=== PATIENT | male | born 1965 | race African-American/Black ===

== ENCOUNTER 2018-10-23 09:36 | Emergency (ER) | payer MEDICAID ==
[~2018-10-23] VITALS: Ht 182.9 cm; Wt 82.9 kg
--- NOTE | 2018-10-23 09:42 | NUR ---
NA X 1 PT IN BATHROOM
--- NOTE | 2018-10-23 10:02 | NUR ---
PT REFUSED WHEELCHAIR
--- NOTE | 2018-10-23 10:15 | NUR ---
Pt to room from lobby.
--- NOTE | 2018-10-23 10:39 | NUR ---
patient arrives with nausea/vomiting/diarrea/stomach pain in rlq and llq/ and dizzness. roomed, gowned, on monitor. collected urine and stool. isolation for diarrea
[2018-10-23] MEDS ORDERED: ONDANSETRON 2MG/ML, 2ML ONE (11:07)
[2018-10-23] MEDS ORDERED: FAMOTIDINE 20 MG/2 ML ONE (11:08)
[2018-10-23 11:15] LABS: BASOPHILS # (AUTO) 0.03 x10^3/uL (0-0.1); BASOPHILS % (AUTO) 0 % (0-1); EOSINOPHILS # (AUTO) 0.17 x10^3/uL (0-0.4); EOSINOPHILS % (AUTO) 2 % (1-7); LYMPHOCYTES # (AUTO) 0.84 x10^3/uL (1-3.4); LYMPHOCYTES % (AUTO) 8 % (22-44); MD NO; MEAN CORPUSCULAR HEMOGLOBIN 29.1 pg (27.5-34.5); MEAN CORPUSCULAR HGB CONC 33.5 g/dL (33.2-36.2); MEAN PLATELET VOLUME 7.6 fL (7.4-10.4); MONOCYTES # (AUTO) 1.33 x10^3/uL (0.2-0.8); MONOCYTES % (AUTO) 12 % (2-9); NEUTROPHILS # (AUTO) 8.39 x10^3/uL (1.8-6.8); NEUTROPHILS % (AUTO) 78 % (42-75); PLATELET COUNT 291 x10^3/uL (130-400); RED BLOOD COUNT 5.07 x10^6/uL (4.38-5.82); RED CELL DISTRIBUTION WIDTH 12.7 % (9.4-14.8)
--- NOTE | 2018-10-23 11:15 | NUR ---
patient medicated, and getting fluid.
[2018-10-23 11:25] LABS: ALBUMIN 3.8 g/dL (3.4-5.0); ANION GAP 4 mmol/L (5-15); CALCIUM 8.6 mg/dL (8.5-10.1); CHLORIDE 109 mmol/L (98-107); CREATININE 1.08 mg/dL (0.7-1.3)
[2018-10-23] MEDS ORDERED: MAALOX/HYOSCYAMINE/LIDOCAINE 45 ML BTL ONE (11:36)
[2018-10-23] MEDS ORDERED: KETOROLAC 30 MG/1 ML ONE (11:48)
[2018-10-23] MEDS ORDERED: SODIUM CHLORIDE 0.9% 1,000ML IVBOLUS ONE (12:00)
[2018-10-23] MEDS ORDERED: SODIUM CHLORIDE FLUSH 10ML SYR IVF ONE (12:00)
[2018-10-23] MEDS ORDERED: MAALOX/HYOSCYAMINE/LIDOCAINE 45 ML BTL PO ONE (12:00)
[2018-10-23] MEDS ORDERED: KETOROLAC 30 MG/1 ML IVPush ONE (12:00)
[2018-10-23] MEDS ORDERED: ONDANSETRON 2MG/ML, 2ML IVPush ONE (12:00)
[2018-10-23] MEDS ORDERED: FAMOTIDINE 20 MG/2 ML IVP ONE (12:00)
--- NOTE | 2018-10-23 12:27 | NUR ---
ELINORN DISCHARGE REVIEWED. SHOWS UNDERSTANDING. PATIENT STATES FEELING BETTER AND WAS ABLE TO KEEP FOOD DOWN. PATIENT LEFT WITH SIG OTHER WALKING.
[2018-10-23 12:47] VITALS: BP 123/67
--- NOTE | 2018-10-23 12:49 | NUR ---
TASK RN: VS UPDATED IN CHART, LUNCH TRAY ORDERED BY . PATIENT TO BE DC'D AFTER EATING LUNCH. PATIENT SITTING IN GURNEY WATCHING TV WITH FAMILY, MIKELN. Addendum: 10/23/18 at 1256 by ELIEL AWAITING LUNCH TRAY.
--- NOTE | 2018-10-23 13:05 | NUR ---
TASK RN: LUNCH TRAY PROVIDED TO PATIENT. PATIENT SITTING IN [facility] EATING LUNCH.
== END 2018-10-23 13:12 | disposition home or self-care (01) ==
LOC: ED 11:28
DX: A08.4 Viral intestinal infection, unspecified (principal); R10.9 Unspecified abdominal pain
CPT/HCPCS: 36415; 80048; 82040; 85025; 96361; 96374; 96375; 99283; J1885; J2405; J3490; J7030

== ENCOUNTER 2021-05-28 18:20 | Emergency (ER) | payer MEDICAID, OTHER ==
[~2021-05-28] VITALS: Ht 182.9 cm; Wt 88.0 kg
[2021-05-28] MEDS ORDERED: SODIUM CHLORIDE 0.9% 1,000ML IVBOLUS ONE (19:00)
[2021-05-28] MEDS ORDERED: KETOROLAC 30 MG/1 ML IVPush ONE (19:00)
[2021-05-28 19:20] LABS: BASOPHILS % (AUTO) 1 % (0-1); EOSINOPHILS % (AUTO) 0 % (1-7); LYMPHOCYTES % (AUTO) 10 % (22-44); MEAN CORPUSCULAR HEMOGLOBIN 28.5 pg (27.5-34.5); MEAN PLATELET VOLUME 7.8 fL (7.4-10.4); MONOCYTES % (AUTO) 11 % (2-9); NEUTROPHILS % (AUTO) 79 % (42-75); PLATELET COUNT 199 x10^3/uL (130-400); RED BLOOD COUNT 4.76 x10^6/uL (4.38-5.82); RED CELL DISTRIBUTION WIDTH 12.8 % (9.4-14.8)
[2021-05-28] MEDS ORDERED: KETOROLAC 30 MG/1 ML ONE (19:21)
[2021-05-28 19:33] LABS: ALBUMIN 2.8 g/dL (3.4-5.0); ANION GAP 8 mmol/L (5-15); CHLORIDE 102 mmol/L (98-107)
[2021-05-28 19:53] LABS: ALANINE AMINOTRANSFERASE 41 U/L (12-78); ALKALINE PHOSPHATASE 85 U/L (45-117); BILIRUBIN,TOTAL 0.8 mg/dL (0.2-1.0); CREATININE 1.08 mg/dL (0.7-1.3); TOTAL PROTEIN 7.4 g/dL (6.4-8.2); TROPONIN I < 0.015 ng/mL (0.000-0.045)
[2021-05-28 20:50] VITALS: BP 118/68
--- NOTE | 2021-05-28 21:47 | NUR ---
Patient given discharge instructions and they have confirmed that they understand the instructions. Patient ambulatory with steady gait. NAD, all questions answered appropriately, denies additional needs at this time. No personal belongings left in room after discharge.
== END 2021-05-28 21:49 | disposition home or self-care (01) ==
LOC: ED 21:43
DX: U07.1 COVID-19 (principal); J12.82 Pneumonia due to coronavirus disease 2019; R07.89 Other chest pain; B34.9 Viral infection, unspecified
CPT/HCPCS: 36415; 71045; 80053; 82728; 83615; 84145; 84484; 85025; 86140; 93005; 96361; 96374; 99285; J1885; J7030